=== PATIENT | female | born 1990 | race Caucasian/White ===

== ENCOUNTER 2020-04-19 08:26 | Emergency (ER) | payer SELFPAY ==
[2020-04-19] MEDS ORDERED: Albuterol/Ipratropium 3.0-0.5 MG/3 ML Neb Soln NEB PRN (08:47)
[2020-04-19] MEDS ORDERED: Albuterol 6.7 GM Inhaler INH PRN (08:47)
--- NOTE | 2020-04-19 08:53 | EDM.PDOC ---
ED HPI GENERAL MEDICAL PROBLEM - General Chief Complaint: Asthma Stated Complaint: ASM. ATTACK Time Seen by Provider: 04/19/20 08:38 Source of Information: Reports: Patient History Limitations: Reports: No Limitations - History of Present Illness INITIAL COMMENTS - FREE TEXT/NARRATIVE: 29-year-old female presents to the ED with an asthma attack. She states she used to get asthma attacks fairly frequently but has not needed an inhaler for about 9 months. Yesterday she had mild symptoms but this morning is much worse in terms of dyspnea and wheezing on minimal exertion. She does not have a albuterol inhaler anymore. Currently staying in a hotel and is from [place]. Trigger is likely allergens as the outdoor pollen count is highest the last few days that it has been for many months. She is a smoker as well which sets her up for asthma attacks. She states if she gets any sputum up it is clear. Denies any hemoptysis. Onset: Gradual Onset Date: 04/18/20 (Appreciated mild asthma symptoms yesterday but worsened over the last 24 hours) Duration: Day(s):, Getting Worse Location: Reports: Chest (Of breath with audible wheezing. Mild paroxysmal nonproductive cough) Quality: Reports: Other Severity: Moderate (Is in with shortness of breath) Improves with: Reports: None Worsens with: Reports: Movement Context: Reports: Other (Lane's occurrence). Denies: Activity, Exercise (Torsion.), Lifting, Sick Contact, Trauma Associated Symptoms: Reports: Cough, cough w sputum, Malaise, Shortness of Breath. 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 (see below) (None.) - Related Data Allergies Allergy/AdvReac Type Severity Reaction Status Date / Time codeine Allergy Cannot Verified 04/19/20 08:42 Remember Penicillins Allergy Hives Verified 04/19/20 08:42 Sulfa (Sulfonamide Allergy Hives Verified 04/19/20 08:42 Antibiotics) tramadol Allergy Hives Verified 04/19/20 08:42 Home Meds: Home Meds Albuterol [Ventolin HFA] 2 puff INH Q3H PRN #1 inhaler 04/19/20 [Rx] Past Medical History - Past Health History Medical/Surgical History: Denies Medical/Surgical History Genitourinary History: Reports: None PLANT GENERAL MANAGER History: Reports: Endometriosis, Other (See Below) Other PLANT GENERAL MANAGER History: laparoscopy for endometriosis Psychiatric History: Reports: Anxiety - Infectious Disease History Infectious Disease History: Reports: Chicken Pox - Past Surgical History Female Surgical History: Reports: Section, Tubal Ligation Social & Family History - Family History Family Medical History: Noncontributory - Tobacco Use Smoking Status *Q: Current Every Day Smoker Years of Tobacco use: 10 Packs/Tins Daily: 1 - Caffeine Use Caffeine Use: Reports: Coffee - Living Situation & Occupation Living situation: Reports: Single Occupation: Employed ED ROS GENERAL - Review of Systems Review Of Systems: See Below Constitutional: Reports: Decreased Appetite. Denies: Fever, Chills, Malaise, Weakness, Fatigue, Weight Loss HEENT: Reports: No Symptoms Respiratory: Reports: Shortness of Breath, Wheezing, Cough, Sputum (There is sputum). Denies: Pleuritic Chest Pain Cardiovascular: Reports: No Symptoms Endocrine: Reports: No Symptoms GI/Abdominal: Reports: No Symptoms : Reports: No Symptoms Musculoskeletal: Reports: No Symptoms Skin: Reports: No Symptoms Neurological: Reports: No Symptoms Psychiatric: Reports: No Symptoms Hematologic/Lymphatic: Reports: No Symptoms Immunologic: Reports: No Symptoms ED EXAM, GENERAL - Physical Exam Exam: See Below Exam Limited By: No Limitations General Appearance: Alert, WD/WN, Mild Distress, Other (Temperature is recorded at 36.2. Heart rate 107 and sinus respiratory is 26 with O2 sats of 96% on room air BP BP is 124/83) Eye Exam: Bilateral Eye: Normal Inspection, PERRL Throat/Mouth: Normal Inspection, Normal Lips, Normal Oropharynx Head: Atraumatic, Normocephalic Neck: Normal Inspection, Supple, Non-Tender, Full Range of Motion. No: Carotid Bruit, Lymphadenopathy (L), Lymphadenopathy (R) Respiratory/Chest: Respiratory Distress (Mild tachypnea), Wheezing (Wheezing on expiration throughout all lung negro.). No: Lungs Clear, Normal Breath Sounds, Crackles, Rales, Rhonchi Cardiovascular: Normal Peripheral Pulses, No Edema, No Gallop (Mild tachycardia at rest.), No JVD, No Murmur, Tachycardia Peripheral Pulses: 2+: Posterior Tibial (L), Posterior Tibial (R), Dorsalis Pedis (L), Dorsalis Pedis (R), 3+: Carotid (L), Carotid (R) GI/Abdominal: Normal Bowel Sounds, Soft, Non-Tender, No Organomegaly, No Abnormal Bruit, No Mass Extremities: Normal Inspection, Normal Range of Motion, Non-Tender, No Pedal Edema Neurological: Alert, Oriented, CN II-XII Intact, Normal Cognition Psychiatric: Normal Affect, Normal Mood Skin Exam: Warm, Dry, Intact, Normal Color, No Rash Course - Vital Signs Last Recorded V/S: Last Vital Signs Temp 36.2 C 04/19/20 08:36 Pulse 107 H 04/19/20 08:36 Resp 26 H 04/19/20 08:36 BP 124/83 04/19/20 08:36 Pulse Ox 97 04/19/20 08:47 - Orders/Labs/Meds Orders: Active Orders 24 hr Category Date Time Status RT Aerosol Therapy [RC] ASDIRECTED Care 04/19/20 08:47 Active RT Post Treatment Assessment [RC] Click to Edit Care 04/19/20 08:49 Active RT Pre-Treatment Assessment [RC] Click to Edit Care 04/19/20 08:49 Active Meds: Medications Discontinued Medications Generic Name Dose Route Start Last Admin Trade Name Freq PRN Reason Stop Dose Admin Albuterol 8.5 gm 04/19/20 08:47 04/19/20 09:04 Proventil Hfa INH 8.5 gm Q3H PRN Administration Wheezing/shorthness of breath Albuterol/Ipratropium 3 ml 04/19/20 08:47 04/19/20 08:54 Duoneb 3.0-0.5 Mg/3 Ml NEB 3 ml Q4H PRN Administration Shortness Of Breath/wheezing - Radiology Interpretation Free Text/Narrative:: 29-year-old female awakened this morning with acute onset of asthma symptoms she had mild asthma symptoms yesterday morning when she awoke. Has a history of asthma but has not used an inhaler for about 9 months. At present she is visiting [place] and is from the [facility]. Staying in a local hotel. She is a smoker. Currently paroxysmal cough of some clear sputum. Exam reveals diffuse wheezing throughout all lung negro. She is afebrile ear nose and throat exam is otherwise normal. Suspect environmental pollen is and allergies as causing asthma symptoms. She was treated with a DuoNeb nebulizer treatment in the ED and will be given an albuterol metered-dose inhaler 2 puffs every 3-4 hours as needed for relief. Prescription written for a larger inhaler as well. She is to follow-up if she is symptomatic in 5 days time. Departure - Departure Time of Disposition: 08:49 Disposition: Home, Self-Care 01 Condition: Fair Clinical Impression: Asthma attack Qualifiers: Asthma severity: moderate Asthma persistence: unspecified Qualified Code(s): J45.901 - Unspecified asthma with (acute) exacerbation - Discharge Information *PRESCRIPTION DRUG MONITORING PROGRAM REVIEWED*: Not Applicable *COPY OF PRESCRIPTION DRUG MONITORING REPORT IN PATIENT LENNIE: Not Applicable Prescriptions: Albuterol [Ventolin HFA] 2 puff INH Q3H PRN #1 inhaler PRN Reason: asthma attack Instructions: Asthma, Adult, Asthma Attack Referrals: PCP,None [Primary Care Provider] - Forms: ED Department Discharge Additional Instructions: Evaluation in the emergency room this morning in regards to acute asthma attack. As you indicate this happens to you periodically. The exact trigger for this attack is unclear but is likely related to the high pollen content in the air right now. You are smoker which set you up for inflammation of the bronchial tubes etc. You were treated in the ED with a DuoNeb inhalational medication to relieve symptoms acutely. You will be discharged with an albuterol inhaler 2 puffs every 3-4 hours as needed for shortness of breath and or wheezing. Prescription written for a larger inhaler if needed. Better in 5 to 7 days or symptoms are persisting you should be seen again. Sepsis Event Note (ED) - Evaluation Sepsis Screening Result: No Definite Risk - Focused Exam Vital Signs: Vital Signs Temp Pulse Resp BP Pulse Ox Pulse Ox 04/19/20 08:47 97 04/19/20 08:36 36.2 C 107 H 26 H 124/83 96 - My Orders Last 24 Hours: My Active Orders 04/19/20 08:47 RT Aerosol Therapy [RC] ASDIRECTED 04/19/20 08:49 RT Post Treatment Assessment [RC] Click to Edit RT Pre-Treatment Assessment [RC] Click to Edit - Assessment/Plan Last 24 Hours: My Active Orders 04/19/20 08:47 RT Aerosol Therapy [RC] ASDIRECTED 04/19/20 08:49 RT Post Treatment Assessment [RC] Click to Edit RT Pre-Treatment Assessment [RC] Click to Edit
== END 2020-04-19 09:06 | disposition home or self-care (01) ==
LOC: JD.ED 08:26
DX: J45.901 Unspecified asthma with (acute) exacerbation (principal); F17.210 Nicotine dependence, cigarettes, uncomplicated; Z88.5 Allergy status to narcotic agent; Z88.0 Allergy status to penicillin; Z88.2 Allergy status to sulfonamides
CPT/HCPCS: 94640; 99284; A9270; 99283; J7620-GY